=== PATIENT | male | born 1940 | race Caucasian/White ===

== ENCOUNTER 2018-03-04 06:22 | Day surgery (SDC) | payer MEDICARE, OTHER ==
[2018-03-03 10:03] LABS: ALANINE AMINOTRANSFERASE 31 U/L (12-78); ALBUMIN 3.9 g/dL (3.4-5.0); ANION GAP 8 mmol/L (5-15); CALCIUM 9.4 mg/dL (8.5-10.1); CHLORIDE 105 mmol/L (98-107); CREATININE 0.82 mg/dL (0.7-1.3)
[2018-03-03 10:05] LABS: ALKALINE PHOSPHATASE 70 U/L (45-117); BILIRUBIN,TOTAL 0.5 mg/dL (0.2-1.0); TOTAL PROTEIN 7.5 g/dL (6.4-8.2)
[~2018-03-04] VITALS: Ht 172.7 cm; Wt 78.2 kg
[~2018-03-04 06:22] MED LIST: ALBU8.5H5 INH; ALPH200T2 PO; CINN500C2 PO; CYAN250013 PO; CYCL-259 PO; DOXY100C2 PO; ERGO500017 PO; FELO10TA PO; FINA5TAB4 PO; FLUT16SP IH; FLUT1DIS3 INH; GABA300C10 PO; HYDR-3245 PO; IBUP-1221 PO; LOSA100T7 PO; MAGN100T6 PO; METF500T17 PO; MONT10TA6 PO; OMEG-172 PO; SIMV10TA3 PO; SIMV40TA3 PO; SITA1TBM4 PO; TRIPLE OMEGA; TURM1POW PO
[2018-03-04 06:52] VITALS: BP 156/92
[2018-03-04] MEDS ORDERED: BACITRACIN OINT 500U/GM, 15 GM ONE (06:53)
[2018-03-04] MEDS ORDERED: LIDOCAINE 1%-EPI 1:100K, 30ML ONE (06:53)
[2018-03-04] MEDS ORDERED: OXYMETAZOLINE NASAL SPRAY 0.05%, 15ML ONE (06:53)
[2018-03-04] MEDS ORDERED: FLUORESCEIN SODIUM 500 MG/5 ML ONE (06:53)
[2018-03-04] MEDS ORDERED: EPINEPHRINE TOPICAL SOLN 1 MG/ML, 30ML ONE (06:53)
[2018-03-04] MEDS ORDERED: LACTATED RINGERS 1,000 ML IV SCH (06:54)
[2018-03-04] MEDS ORDERED: ETOMIDATE 20 MG/10 ML ONE (08:21)
[2018-03-04] MEDS ORDERED: ROCURONIUM 10MG/ML,5ML ONE ×2 (08:21→09:21)
[2018-03-04] MEDS ORDERED: CEFAZOLIN 1,000 MG ONE (08:23)
[2018-03-04] MEDS ORDERED: FENTANYL PF 100 MCG/2ML ONE ×3 (08:32→11:10)
[2018-03-04] MEDS ORDERED: HYDROmorphone 1 MG/ML, 1ML IV PRN (09:00)
[2018-03-04] MEDS ORDERED: HYDROcodone/APAP 7.5-325MG/15ML UDC PO PRN (09:00)
[2018-03-04] MEDS ORDERED: MEPERIDINE/PF 25MG/0.5ML IVPush PRN (09:00)
[2018-03-04] MEDS ORDERED: OXYcodone 5 MG/5 ML ORAL.SOL UDC PO PRN (09:00)
[2018-03-04] MEDS ORDERED: MORPHINE SULFATE 4 MG/ML, 1ML IVPush PRN (09:00)
[2018-03-04] MEDS ORDERED: ACETAMINOPHEN 650 MG/20.3 ML UDC ONE (11:10)
[2018-03-04] MEDS ORDERED: OXYcodone 5 MG/5 ML ORAL.SOL UDC ONE (11:11)
[2018-03-04] MEDS: FENTANYL PF 100 MCG/2ML IV PRN ×2 (11:15→11:23)
[2018-03-04] MEDS ORDERED: ACETAMINOPHEN 650 MG/20.3 ML UDC PO PRN (11:30)
== END 2018-03-04 13:35 | disposition home or self-care (01) ==
LOC: OUT 06:22
PROVIDERS: ATTEND Otolaryngology
DX: J32.0 Chronic maxillary sinusitis (principal); J32.2 Chronic ethmoidal sinusitis; J34.3 Hypertrophy of nasal turbinates; E11.9 Type 2 diabetes mellitus without complications; Z88.1 Allergy status to other antibiotic agents; Z88.2 Allergy status to sulfonamides; Z79.899 Other long term (current) drug therapy
CPT/HCPCS: 30130; 31256; 31257; 31267; 36415; 61782; 80053; 82962; 87015; 87070; 87075; 87077; 87116; 87186; 87205; 87206; 88304; 93005; J0690; J3010; J3490; J7120